=== PATIENT | male | born 1975 | race Caucasian/White ===

== ENCOUNTER 2021-06-13 06:43 | Day surgery (SDC) | payer OTHER ==
[2021-05-16 13:01] VITALS: BMI 26.5
[2021-06-13] MEDS ORDERED: LIDOCAINE 1%/EPI 1:100000 (50 ML MULTI DOSE VIAL) INF ONE (08:37)
[2021-06-13 10:40] VITALS: BP 108/68; PULSE 66; TEMP 97.8
== END 2021-06-13 10:23 | disposition home or self-care (01) ==
LOC: JASU-SURG 06:43 → EDSTATUS 08:00 → JASU-SURG 10:23
PROVIDERS: ATTEND Neurological Surgery
PROC: 0JH70MZ Insertion of Stimulator Generator into Back Subcutaneous Tissue and Fascia, Open Approach (ICD-10-PCS; principal; 2021-06-13 08:00)
DX: G89.4 Chronic pain syndrome (principal)
CPT/HCPCS: 63685; L8679; 88300-TC

== ENCOUNTER 2021-10-31 04:14 | Inpatient (IN) | payer OTHER ==
[2021-10-30 17:29] VITALS: BMI 28.7
[2021-10-31] MEDS ORDERED: DEXMEDETOMIDINE HCL 200 MCG/2 ML IVPB ONE (10:09)
[2021-10-31] MEDS ORDERED: VANCOMYCIN 1,000 MG VIAL (RESTRICTED TO ID ONLY) ONE (10:10)
[2021-10-31] MEDS ORDERED: GENTAMICIN SO4 80 MG/2 ML VIAL ONE (10:10)
[2021-10-31] MEDS ORDERED: fentaNYL CITRATE 250 MCG/5 ML VIAL ONE (10:11)
[2021-10-31] MEDS ORDERED: ROCURONIUM BROMIDE 50 MG/5 ML SYRINGE ONE (10:11)
[2021-10-31] MEDS ORDERED: MIDAZOLAM HCL 2 MG/2 ML SINGLE DOSE VIAL ONE ×2 (10:11)
[2021-10-31] MEDS ORDERED: PROPOFOL 20 ML ONE ×2 (10:11)
[2021-10-31] MEDS ORDERED: LIDOCAINE 1%/EPI 1:100000 (20 ML MULTI DOSE VIAL) IJ ONE ×2 (10:21→10:49)
[2021-10-31] MEDS ORDERED: ceFAZolin 2 GRAM PREMIX BAG IVPB ONE ×2 (10:21→10:50)
[2021-10-31] MEDS ORDERED: VANCOMYCIN 1 GM in D5W (PRE-DOCKED) 1,000 MG/250 ML IVPB ONE ×2 (10:22→15:00)
[2021-10-31] MEDS ORDERED: THROMBIN (BOVINE) 5,000 UNIT VIAL TP ONE (10:22)
[2021-10-31] MEDS ORDERED: GENTAMICIN SO4 80 MG/2 ML VIAL IVPB ONE (10:23)
[2021-10-31] MEDS ORDERED: HYDROGEN PEROXIDE 473 ML PO ONE (10:23)
[2021-10-31] MEDS ORDERED: NEOSTIGMINE METHYLSULFATE 0.5 MG/1 ML - 10 ML MDV ONE (11:27)
[2021-10-31] MEDS ORDERED: GLYCOPYRROLATE 0.2 MG/1 ML VIAL ONE (11:27)
[2021-10-31] MEDS ORDERED: ONDANSETRON 4 MG/2 ML VIAL IVPUSH PRN ×2 (11:52→11:59)
[2021-10-31] MEDS ORDERED: diphenhydrAMINE HCL 25 MG CAPSULE (FP) PO PRN (11:59)
[2021-10-31] MEDS ORDERED: oxyCODONE HCL 5 MG TABLET PO PRN (11:59)
[2021-10-31] MEDS ORDERED: LACTATED RINGERS SOLUTION 1,000 ML IV SCH (12:00)
[2021-10-31] MEDS ORDERED: HEPARIN NA (PORCINE) 5,000 UNITS/ML 1ML VIAL SQ SCH (13:00)
[2021-10-31] MEDS ORDERED: HYDROmorphone HCl 2 MG/ML VIAL ONE (13:10)
[2021-10-31] MEDS ORDERED: HYDROmorphone HCL CARPU-JECT 2 MG/1 ML DISP.SYRIN IVPUSH PRN (13:11)
[2021-10-31] MEDS ORDERED: VANCOMYCIN 1 GM in D5W (PRE-DOCKED) 1,000 MG/250 ML IVPB SCH (13:30)
[2021-10-31] MEDS: DOCUSATE SODIUM 100 MG CAPSULE (FP) PO SCH ×2 (15:04→22:28)
[2021-10-31] MEDS ORDERED: PIPERACILLIN/TAZOBACTAM 3.375 GM VIAL IVPB ONE (16:28)
[2021-10-31] MEDS ORDERED: DEXTROSE 5%-WATER - 50 ML IVPB ONE (16:28)
[2021-10-31] MEDS: PIPERACILLIN/TAZOB 3.375 GM 3.375 GM in DEXTROSE 5%-WATER - 50 ML IVPB SCH ×2 (16:37→17:47)
[2021-10-31] MEDS ORDERED: traZODone HCL 150 MG TABLET PO SCH (22:00)
[2021-10-31] MEDS ORDERED: traZODone HCL 100 MG TABLET (FP) PO SCH (22:01)
[2021-10-31] MEDS: GABAPENTIN 300 MG CAPSULE PO SCH (22:28)
[2021-10-31] MEDS: traZODone HCL 100 MG TABLET (FP) PO SCH (22:28)
[2021-10-31] MEDS: ATORVASTATIN CA 20 MG TABLET (FP) PO SCH (22:28)
[2021-10-31] MEDS: CARVEDILOL 6.25 MG TABLET (FP) PO SCH (22:28)
[2021-11-01] MEDS: oxyCODONE HCL 5 MG TABLET PO PRN ×2 (00:05→18:55)
[2021-11-01] MEDS ORDERED: PIPERACILLIN/TAZOBACTAM 3.375 GM VIAL IVPB ONE ×2 (02:01→08:32)
[2021-11-01] MEDS ORDERED: DEXTROSE 5%-WATER - 50 ML IVPB ONE ×2 (02:01→08:32)
[2021-11-01] MEDS: PIPERACILLIN/TAZOB 3.375 GM 3.375 GM in DEXTROSE 5%-WATER - 50 ML IVPB SCH ×2 (02:09→09:11)
[2021-11-01] MEDS: DOCUSATE SODIUM 100 MG CAPSULE (FP) PO SCH ×3 (06:39→22:08)
[2021-11-01] MEDS: HEPARIN NA (PORCINE) 5,000 UNITS/ML 1ML VIAL SQ SCH ×3 (09:10→22:08)
[2021-11-01] MEDS: FOLIC ACID 1 MG TABLET (FP) PO SCH (09:11)
[2021-11-01] MEDS: GABAPENTIN 300 MG CAPSULE PO SCH ×2 (09:11→22:08)
[2021-11-01] MEDS: CARVEDILOL 6.25 MG TABLET (FP) PO SCH ×2 (09:12→22:08)
[2021-11-01 12:12] LABS: HEMATOCRIT 36.5 % (35.4-49); HEMOGLOBIN 12.7 GM/dL (11.7-16.9); MCH 30.3 pg (25.7-33.7); MCHC 34.7 g/dl (32.0-35.9); MEAN CELL VOLUME 87.3 fl (80-96); MEAN PLT VOLUME 8.2 fl (7.5-11.1); PLATELET COUNT 218 10^3/uL (134-434); RBC 4.18 M/mm3 (4.00-5.60); RDW 13.5 % (11.9-15.9); WHITE BLOOD COUNT 6.7 K/mm3 (4.0-10.0)
[2021-11-01 12:29] LABS: CALCIUM 8.6 mg/dL (8.5-10.1)
[2021-11-01 12:30] LABS: BLOOD UREA NITROGEN 13.6 mg/dL (7-18); MAGNESIUM 1.9 mg/dL (1.8-2.4)
[2021-11-01 12:33] LABS: CREATININE 1.2 mg/dL (0.55-1.3); PHOSPHOROUS 2.7 mg/dL (2.5-4.9)
[2021-11-01] MEDS: CEFAZOLIN 2 GM in DEXTROSE 5%-WATER - 100 ML IVPB SCH ×2 (13:26→18:17)
[2021-11-01] MEDS: morphine SULFATE 4 MG/ML VIAL IVPUSH PRN (13:39)
[2021-11-01] MEDS: ATORVASTATIN CA 20 MG TABLET (FP) PO SCH (22:08)
[2021-11-01] MEDS: traZODone HCL 100 MG TABLET (FP) PO SCH (22:10)
[2021-11-02] MEDS ORDERED: ALPRAZolam 1 MG TABLET PO ONE (00:18)
[2021-11-02] MEDS: CEFAZOLIN 2 GM in DEXTROSE 5%-WATER - 100 ML IVPB SCH ×3 (01:18→17:44)
[2021-11-02] MEDS: DOCUSATE SODIUM 100 MG CAPSULE (FP) PO SCH ×3 (06:06→21:06)
[2021-11-02] MEDS: HEPARIN NA (PORCINE) 5,000 UNITS/ML 1ML VIAL SQ SCH ×3 (06:06→21:05)
[2021-11-02] MEDS: oxyCODONE HCL 5 MG TABLET PO PRN ×2 (07:45→23:51)
[2021-11-02] MEDS: GABAPENTIN 300 MG CAPSULE PO SCH ×2 (09:55→21:07)
[2021-11-02] MEDS: FOLIC ACID 1 MG TABLET (FP) PO SCH (09:55)
[2021-11-02] MEDS: CARVEDILOL 6.25 MG TABLET (FP) PO SCH ×2 (09:55→21:07)
[2021-11-02 10:09] LABS: BASO % 0.2 % (0-2.0); EOS % 3.6 % (0-4.5); HEMATOCRIT 35.6 % (35.4-49); HEMOGLOBIN 11.8 GM/dL (11.7-16.9); LYMPH % 29.2 % (8-40); MCH 29.7 pg (25.7-33.7); MCHC 33.3 g/dl (32.0-35.9); MEAN CELL VOLUME 89.3 fl (80-96); MEAN PLT VOLUME 8.5 fl (7.5-11.1); MONO % 11.6 % (3.8-10.2); NEUT % 55.4 % (42.8-82.8); PLATELET COUNT 210 10^3/uL (134-434); RBC 3.99 M/mm3 (4.00-5.60); RDW 13.1 % (11.9-15.9); WHITE BLOOD COUNT 5.9 K/mm3 (4.0-10.0)
[2021-11-02 11:30] LABS: CALCIUM 8.5 mg/dL (8.5-10.1)
[2021-11-02 11:31] LABS: BLOOD UREA NITROGEN 11.8 mg/dL (7-18)
[2021-11-02] MEDS: morphine SULFATE 4 MG/ML VIAL IVPUSH PRN (11:38)
[2021-11-02] MEDS ORDERED: SIMETHICONE 80 MG TAB.CHEW (FP) PO PRN (17:00)
[2021-11-02] MEDS ORDERED: ACETAMINOPHEN 325 MG TABLET (FP) PO ONE (20:25)
[2021-11-02] MEDS: ATORVASTATIN CA 20 MG TABLET (FP) PO SCH (21:07)
[2021-11-02] MEDS: traZODone HCL 100 MG TABLET (FP) PO SCH (21:07)
[2021-11-02 21:31] LABS: BASO % 0.3 % (0-2.0); EOS % 4.3 % (0-4.5); HEMATOCRIT 35.3 % (35.4-49); HEMOGLOBIN 12.1 GM/dL (11.7-16.9); LYMPH % 28.6 % (8-40); MCH 30.3 pg (25.7-33.7); MCHC 34.3 g/dl (32.0-35.9); MEAN CELL VOLUME 88.4 fl (80-96); MEAN PLT VOLUME 7.8 fl (7.5-11.1); MONO % 13.6 % (3.8-10.2); NEUT % 53.2 % (42.8-82.8); PLATELET COUNT 213 10^3/uL (134-434); RBC 3.99 M/mm3 (4.00-5.60); RDW 13.3 % (11.9-15.9); WHITE BLOOD COUNT 6.2 K/mm3 (4.0-10.0)
[2021-11-02 21:47] LABS: CALCIUM 9.1 mg/dL (8.5-10.1)
[2021-11-02 21:48] LABS: ALBUMIN 3.4 g/dl (3.4-5.0); BLOOD UREA NITROGEN 10.9 mg/dL (7-18); MAGNESIUM 2.1 mg/dL (1.8-2.4)
[2021-11-02 21:51] LABS: CREATININE 1.1 mg/dL (0.55-1.3); PHOSPHOROUS 2.3 mg/dL (2.5-4.9)
[2021-11-02 21:52] LABS: TOT PROT 6.9 g/dl (6.4-8.2)
[2021-11-02 21:53] LABS: BILIRUBIN,TOTAL 0.3 mg/dL (0.2-1)
[2021-11-02] MEDS ORDERED: guaiFENesin 200 MG/10 ML 10 ML UNIT-DOSE CUPS PO PRN (23:27)
[2021-11-02] MEDS ORDERED: SODIUM CHLORIDE NASAL SPRAY 44 ML BOTTLE NS PRN (23:29)
[2021-11-03] MEDS ORDERED: ALPRAZolam 1 MG TABLET PO PRN (00:01)
[2021-11-03] MEDS: CEFAZOLIN 2 GM in DEXTROSE 5%-WATER - 100 ML IVPB SCH ×3 (01:53→18:07)
[2021-11-03] MEDS: DOCUSATE SODIUM 100 MG CAPSULE (FP) PO SCH ×3 (05:58→22:14)
[2021-11-03] MEDS: HEPARIN NA (PORCINE) 5,000 UNITS/ML 1ML VIAL SQ SCH ×3 (05:58→22:14)
[2021-11-03] MEDS: oxyCODONE HCL 5 MG TABLET PO PRN ×2 (06:02→23:16)
[2021-11-03] MEDS: CARVEDILOL 6.25 MG TABLET (FP) PO SCH ×2 (09:18→22:14)
[2021-11-03] MEDS: GABAPENTIN 300 MG CAPSULE PO SCH ×2 (09:18→22:14)
[2021-11-03] MEDS: FOLIC ACID 1 MG TABLET (FP) PO SCH (09:18)
[2021-11-03] MEDS: morphine SULFATE 4 MG/ML VIAL IVPUSH PRN (09:23)
[2021-11-03] MEDS ORDERED: oxyCODONE HCL 5 MG TABLET PO PRN (15:48)
[2021-11-03] MEDS: NAPH,MB-DB/K PH,MBDB POWDER PACKET PO SCH ×2 (16:40→22:14)
[2021-11-03] MEDS: ATORVASTATIN CA 20 MG TABLET (FP) PO SCH (22:14)
[2021-11-03] MEDS: traZODone HCL 100 MG TABLET (FP) PO SCH (22:14)
[2021-11-03] MEDS: ALPRAZolam 1 MG TABLET PO PRN (23:15)
[2021-11-04] MEDS: CEFAZOLIN 2 GM in DEXTROSE 5%-WATER - 100 ML IVPB SCH ×3 (02:33→18:12)
[2021-11-04] MEDS: HEPARIN NA (PORCINE) 5,000 UNITS/ML 1ML VIAL SQ SCH ×3 (06:44→21:31)
[2021-11-04] MEDS: DOCUSATE SODIUM 100 MG CAPSULE (FP) PO SCH ×3 (06:44→21:30)
[2021-11-04] MEDS: FOLIC ACID 1 MG TABLET (FP) PO SCH (09:54)
[2021-11-04] MEDS: GABAPENTIN 300 MG CAPSULE PO SCH ×2 (09:54→21:30)
[2021-11-04] MEDS: CARVEDILOL 6.25 MG TABLET (FP) PO SCH ×2 (09:54→21:31)
[2021-11-04] MEDS: oxyCODONE HCL 5 MG TABLET PO PRN ×2 (09:55→18:49)
[2021-11-04] MEDS: BENZOCAINE/MENTH/CETYLPYRD CL 1 EACH LOZENGE MM PRN (12:13)
[2021-11-04 19:03] LABS: BLOOD UREA NITROGEN 11.3 mg/dL (7-18); CALCIUM 8.9 mg/dL (8.5-10.1); MAGNESIUM 2.2 mg/dL (1.8-2.4)
[2021-11-04 19:04] LABS: ALBUMIN 3.2 g/dl (3.4-5.0)
[2021-11-04 19:06] LABS: CREATININE 1.1 mg/dL (0.55-1.3); PHOSPHOROUS 2.7 mg/dL (2.5-4.9)
[2021-11-04 19:08] LABS: BILIRUBIN,TOTAL 0.3 mg/dL (0.2-1); TOT PROT 6.8 g/dl (6.4-8.2)
[2021-11-04] MEDS: traZODone HCL 100 MG TABLET (FP) PO SCH (21:30)
[2021-11-04] MEDS: ATORVASTATIN CA 20 MG TABLET (FP) PO SCH (21:30)
[2021-11-05] MEDS: oxyCODONE HCL 5 MG TABLET PO PRN ×3 (00:44→14:24)
[2021-11-05] MEDS: ALPRAZolam 1 MG TABLET PO PRN (00:45)
[2021-11-05] MEDS: CEFAZOLIN 2 GM in DEXTROSE 5%-WATER - 100 ML IVPB SCH ×2 (01:04→09:33)
[2021-11-05] MEDS: DOCUSATE SODIUM 100 MG CAPSULE (FP) PO SCH ×2 (06:09→14:17)
[2021-11-05] MEDS: HEPARIN NA (PORCINE) 5,000 UNITS/ML 1ML VIAL SQ SCH ×2 (06:10→14:17)
[2021-11-05] MEDS: CARVEDILOL 6.25 MG TABLET (FP) PO SCH (09:33)
[2021-11-05] MEDS: FOLIC ACID 1 MG TABLET (FP) PO SCH (09:33)
[2021-11-05] MEDS: GABAPENTIN 300 MG CAPSULE PO SCH (09:33)
[2021-11-05] MEDS: BENZOCAINE/MENTH/CETYLPYRD CL 1 EACH LOZENGE MM PRN (09:39)
[2021-11-05 10:08] LABS: SARS-CoV-2 NAA Not Detected (Not Detected)
[2021-11-05 11:14] LABS: BASO % 0.3 % (0-2.0); EOS % 5.9 % (0-4.5); HEMOGLOBIN 11.9 GM/dL (11.7-16.9); LYMPH % 35.5 % (8-40); MCH 30.1 pg (25.7-33.7); MEAN CELL VOLUME 88.6 fl (80-96); MONO % 8.4 % (3.8-10.2); NEUT % 49.9 % (42.8-82.8); PLATELET COUNT 236 10^3/uL (134-434); RBC 3.95 M/mm3 (4.00-5.60); RDW 13.3 % (11.9-15.9); WHITE BLOOD COUNT 5.4 K/mm3 (4.0-10.0)
[2021-11-05 14:20] VITALS: BP 118/55; PULSE 85; TEMP 98
== END 2021-11-05 17:37 | disposition home or self-care (01) | DRG 711 ==
LOC: JASU-SURG 04:14 → J2C 11:59 → J6S 14:09
PROVIDERS: ADMIT Neurological Surgery; ATTEND Internal Medicine
PROC: 0JPT0MZ Removal of Stimulator Generator from Trunk Subcutaneous Tissue and Fascia, Open Approach (ICD-10-PCS; 2021-10-31)
PROC: 3E10X8Z Irrigation of Skin and Mucous Membranes using Irrigating Substance (ICD-10-PCS; 2021-10-31)
PROC: 0HB6XZZ Excision of Back Skin, External Approach (ICD-10-PCS; 2021-10-31)
PROC: 0JB70ZZ Excision of Back Subcutaneous Tissue and Fascia, Open Approach (ICD-10-PCS; 2021-10-31)
PROC: 00PV0MZ Removal of Neurostimulator Lead from Spinal Cord, Open Approach (ICD-10-PCS; principal; 2021-10-31 11:00)
DX: T85.734A Infection and inflammatory reaction due to implanted electronic neurostimulator, generator, initial encounter (principal); Y83.8 Other surgical procedures as the cause of abnormal reaction of the patient, or of later complication, without mention of misadventure at the time of the procedure; G89.29 Other chronic pain; I10 Essential (primary) hypertension; E78.5 Hyperlipidemia, unspecified; B95.61 Methicillin susceptible Staphylococcus aureus infection as the cause of diseases classified elsewhere
CPT/HCPCS: 36415; 80048; 80053; 83036; 83735; 84100; 85025; 85027; 87040; 87070; 87077; 87186; 87205; 88300-TC; 88305-TC; 94010; 94760; 97116-GP; 97162-GP; C9803; J1644; U0003; U0005